=== PATIENT | female | born 1970 | race Two or more races ===

== ENCOUNTER 2024-07-06 12:47 | Inpatient (IN) | payer MEDICARE, MEDICAID ==
[2024-07-06] MEDS ORDERED: MAG HYDROX/AL HYDROX/SIMETH 355 ML BOTTLE PO PRN (13:04)
[2024-07-06] MEDS ORDERED: ACETAMINOPHEN TAB 325 MG TAB PO PRN (13:04)
[2024-07-06] MEDS ORDERED: MAGNESIUM HYDROXIDE 2,400 MG/30 ML CUP PO PRN (13:04)
[2024-07-06] MEDS ORDERED: IBUPROFEN 600 MG TAB PO PRN (13:04)
[2024-07-06] MEDS ORDERED: OLANZapine ODT 5 MG TAB PO PRN (13:50)
[2024-07-06] MEDS ORDERED: LORazepam 1 MG TAB PO PRN (13:50)
[2024-07-06 15:53] LABS: Glucose,Whole Blood 103 mg/dL (70-110)
[2024-07-06] MEDS: NICOTINE 21MG/24HR PATCH TRANSDERM SCH (15:58)
[2024-07-06] MEDS: OLANZapine ODT 10 MG TAB PO SCH (15:58)
[2024-07-06 17:44] LABS: Glucose,Whole Blood 141 mg/dL (70-110)
[2024-07-06 20:09] LABS: Glucose,Whole Blood 115 mg/dL (70-110)
[2024-07-06] MEDS: risperiDONE 1 MG TAB PO SCH (21:18)
[2024-07-06] MEDS: DIVALPROEX 250 MG TABLET.DR PO SCH (21:18)
[2024-07-06] MEDS: DIVALPROEX 500 MG TABLET.DR PO SCH (21:18)
[2024-07-06] MEDS: traZODone HCL 100 MG TAB PO SCH (21:19)
[2024-07-06] MEDS: PROPRANOLOL 10 MG TAB PO SCH (21:20)
[2024-07-07 08:03] LABS: Glucose,Whole Blood 94 mg/dL (70-110)
--- NOTE | 2024-07-07 08:09 | P.HP ---
Psychiatric H&P - . H&P Date: 07/07/24 History & Physical: Allergies Allergy/AdvReac Type Severity Reaction Status Date / Time sulfamethoxazole Allergy Rash/Hives Verified 07/06/24 13:03 [From Bactrim] trimethoprim [From Bactrim] Allergy Rash/Hives Verified 07/06/24 13:03 venom-wasp Allergy Anaphylaxis Verified 07/06/24 13:03 Vital Signs Temp 98.4 F 07/06/24 21:00 Pulse 94 07/06/24 21:00 Resp 14 07/06/24 21:00 BP 146/81 07/06/24 21:00 Pulse Ox 93 L 07/06/24 21:00 FiO2 Intake & Output 07/06/24 07/07/24 07/07/24 18:59 06:59 18:59 Weight 84 kg Laboratory Last Values POC Glucose (mg/dL) 115 mg/dL (70-110) H 07/06/24 20:07 POC Glu Toaster Operator ID Echo Melo 07/06/24 20:07 07/07/24 07:55 IDENTIFYING DATA: Patient is a 53-year-old female currently unemployed living with her HPI: Patient presented to the hospital under a CERT due auditory hallucinations and suicidal thoughts. The patient has a long history of schizophrenia that consist with auditory hallucinations. She notes that when she does have auditory hallucinations generally they are inside her head, male, unfamiliar and positive. She notes the recent incident was caused by forgetfulness of taking her medication. She notes that she started hearing the voices and instantly became angry. She notes that she knocked the record albums off the stereo and kicked a chair. After which she punched the door and requested that her called 911. When the police arrived she had noted that she was having thoughts of "wishing she was ". She notes that she is dealing with mild depression as well as anxiety. She notes that she has a chronic history of fractured sleep however, on the day of the incident she was unable to go to sleep at her usual bedtime at 9 PM and stayed up to 12. She notes that her energy and appetite are normal. She notes that her concentration is "okay". She denies any feelings of helplessness, hopelessness or worthlessness. She notes some crying and feelings of guilt.. Patient denies any suicidal or homicidal ideations intent or plan currently. At this time patient denies any auditory or visual hallucinations. Review of psychiatric systems was negative for bipolar disorder, OCD and PTSD. PAST PSYCHIATRIC HISTORY: Patient has a history of schizophrenia. Currently on trazodone 200 mg, Risperdal 3 mg twice daily, Zyprexa 10 mg 3 times daily, Depak ote 750 mg twice daily. The patient has been on other medications but cannot recall. Patient has over 12 hospitalizations in the past most recently 11 years ago. The patient has 2 prior suicide attempts. Patient follows up with mental health outpatient. The patient notes no abuse in childhood. S PMH: as per ER note ALLERGIES: as per EMR CHEMICAL DEPENDENCY HISTORY: as per HPI FAMILY PSYCHIATRIC/SUBSTANCE USE HISTORY: Denies SOCIAL HISTORY: Patient was born and raised in patient grew up in [place] and notes that her childhood was "wonderful". She notes that she dropped out in the 10th grade. She notes that she has been for the past 8 to 9 years. She denies any children. She is currently unemployed. She notes that she is mandaen. She denies any service. MENTAL STATUS EXAM: General Appearance: Patient appears to be older than her stated age is alert, directable, and attempts to cooperate. Patient appears to have good hygiene and grooming. Behavior: Patient is seated without any agitated behavior. Patient did have some problems at times with possible thought blocking. Speech: Patient's speech is fluent and nonpressured. Mood/Affect: Patient reports their mood is anxious, affect is congruent and constricted. Suicidality/Homicidality: Patient denies having any homicidal ideation intent or plan. Denies any suicidal ideations intent or plan Perceptions: Patient denies any visual hallucinations and denies any auditory hallucinations Though content/process: There is no evidence of any delusional thought content and thought process is linear and goal-directed. Memory and concentration: AOX3, grossly intact for the purposes of this session. Can spell "WORLD" backwards Judgment and insight: Fair STRENGTHS/WEAKNESSES: strength is that patient is resilient. Weakness is that patient has fair judgment and impulse control. INTELLECT: Average Diagnosis: Schizophrenia Assessment: 53-year-old female presenting due to having auditory hallucinations and brief suicidal thoughts due to noncompliance with medications. Appears that the noncompliance with medication is concurrent with forgetfulness. She did voice that she was having thoughts of with no plan or intent when having the auditory hallucinations. She does have some cognitive issues that appear to be driven possibly by her being noncompliant with medications. At this time patient warrants observation to ensure safety and that her psychosis is under control. An attempt was made to contact her significant other Doron [phone] however unsuccessful. PLAN: -Patient is admitted under voluntary status to MHU for stabilization of psychiatric symptoms and safety. Patient has signed [adult voluntary form and] [medication consent] and is placed in patient's chart. -Medications : Restart Trazodone 200 mg take 1 tablet by mouth at bedtime for insomnia Risperidone 3 mg take 1 tablet by mouth twice daily for schizophrenia Zyprexa Zydis 10 mg take 1 tablet sublingually 3 times daily for schizophrenia Depakote 250 mg take 1 tablet by mouth twice daily for mood stabilization Depakote 500 mg take 1 tablet by mouth twice daily for mood stabilization -Ativan and Zyprexa PRN for agitation/aggression -Patient was informed of the risks, benefits and side effects of the medication and patient verbally consented to taking the medications. Patient signed med consent form and was placed in chart. -Internal Medicine consult to perform medical evaluation and physical. -NRT -nicotine patch -SW on board for discharge planning. Encourage patient to participate in groups to work on coping skills.
[2024-07-07] MEDS: MULTIVITAMINS, THERA 1 EACH TAB PO SCH (08:58)
[2024-07-07] MEDS: POTASSIUM CHLORIDE ER 10 MEQ TAB.ER.PRT PO SCH (08:58)
[2024-07-07] MEDS: FUROSEMIDE 40 MG TAB PO SCH (08:58)
[2024-07-07] MEDS: DOCUSATE 100 MG CAP PO SCH (08:59)
[2024-07-07] MEDS: LINAGLIPTIN 5 MG TABLET PO SCH (08:59)
[2024-07-07] MEDS: ATORVASTATIN 20 MG TAB PO SCH (08:59)
[2024-07-07] MEDS: EZETIMIBE 10 MG TAB PO SCH (08:59)
[2024-07-07 13:01] LABS: Glucose,Whole Blood 119 mg/dL (70-110)
[2024-07-07 14:23] LABS: Chol/HDL Ratio 1.98 Ratio; LDL Cholesterol,Calculated 45.7 mg/dL (0.0-131.0); VLDL Calculation 19.06 mg/dL (5.00-40.00)
[2024-07-07 17:46] LABS: Glucose,Whole Blood 135 mg/dL (70-110)
--- NOTE | 2024-07-08 02:24 | P.MDCNMH ---
History of Present Illness H&P Date: 07/08/24 53 year old female with DM presented for mental health evaluation due to auditory hallucination and suicidal ideation she reports coughing productive of clear sputum for couple days with sore throat denies runny nose , fever, chills , body aches , chest pain or trouble breathing Patient admits to tobacco smoking denies alcohol abuse review of systems Pertinent positives as noted in HPI. All other systems were reviewed and are negative on exam Constitutional: No acute distress, conversant, pleasant Eyes: Anicteric sclerae, moist conjunctiva, Pupils equal round reactive to light Neck: Supple, no masses, or JVD No carotid bruits No thyromegaly Lungs: Clear to auscultation Clear to percussion Normal respiratory effort, no accessory muscle use Cardiovascular: Heart regular in rate and rhythm, No murmurs, gallops, or rubs No peripheral edema Abdominal: Soft Nontender, no guarding, rebound or rigidity Abdomen moving with respiration Extremities: No digital cyanosis No clubbing Pedal pulses intact and symmetrical Radial pulses intact and symmetrical No calf tenderness Psychiatric: Alert and oriented to person, place and time Neuro Muscles Strength 5/5 in all 4 extremities Sensation to light touch grossly present throughout Cranial nerves II-XII grossly intact Assessment and plan acute psychosis managmeent per psych acute bronchitis RN reported respiratory viral panel and xray done at different facility both unremarkable symptomatic control with tessalon pearls as needed tid no blood work available for review except for lipid panel , LDL 45 HDL 66 , both are well controlled and unremarkable Thank you for this consultation Past Medical History Past Medical History: Diabetes Mellitus, Hypertension, Skin Disorder Additional Past Medical History / Comment(s): eczema severe History of Any Multi-Drug Resistant Organisms: None Reported Past Surgical History: No Surgical Hx Reported Past Anesthesia/Blood Transfusion Reactions: No Reported Reaction Past Psychological History: Schizophrenia Smoking Status: Current every day smoker Past Alcohol Use History: None Reported Past Drug Use History: None Reported Medications and Allergies Allergies Allergy/AdvReac Type Severity Reaction Status Date / Time sulfamethoxazole Allergy Rash/Hives Verified 07/06/24 13:03 [From Bactrim] trimethoprim [From Bactrim] Allergy Rash/Hives Verified 07/06/24 13:03 venom-wasp Allergy Anaphylaxis Verified 07/06/24 13:03 Physical Exam Vitals: Vital Signs Temp Pulse Resp BP Pulse Ox 07/07/24 21:00 98.3 F 87 17 126/73 96 07/07/24 09:00 97.8 F 105 H 110/64 95 Cranial Nerve Examination - Cranial Nerves Cranial Nerve II- Optic: Intact Cranial Nerve III- Oculomotor: Intact Cranial Nerve IV- Trochlear: Intact Cranial Nerve V- Trigeminal: Intact Cranial Nerve - Abducens: Intact Cranial Nerve VII- Facial: Intact Cranial Nerve VIII- Auditory: Intact Cranial Nerve IX- Glossopharyngeal: Intact Cranial Nerve X- Vagus: Intact Cranial Nerve XI- Accessory: Intact Cranial Nerve XII- Hypoglossal: Intact Results Labs: Abnormal Lab Results - Last 24 Hours (Table) 07/07/24 07/07/24 07/07/24 Range/Units 08:18 12:57 17:44 POC Glucose (mg/dL) 119 H 135 H (70-110) mg/dL HDL Cholesterol 66.20 H (40.00-60.00) mg/dL
[2024-07-08] MEDS ORDERED: DEXTROSE 50% SYRINGE 50 ML IVP PRN ×2 (02:26)
[2024-07-08 07:47] LABS: Glucose,Whole Blood 106 mg/dL (70-110)
[2024-07-08] MEDS: INSULIN LISPRO (HumaLOG) 100 UNIT/ML 10 mL VL SQ SCH (07:55)
[2024-07-08 09:11] VITALS: BP 130/67; PULSE 78; RESP 18; TEMP 97.2
--- NOTE | 2024-07-08 10:28 | P.DS ---
Providers Date of admission: 07/06/24 15:49 Admission HPI: Admission note was completed by Dr. Munoz "Patient presented to the hospital under a CERT due auditory hallucinations and suicidal thoughts. The patient has a long history of schizophrenia that consist with auditory hallucinations. She notes that when she does have auditory hallucinations generally they are inside her head, male, unfamiliar and positive. She notes the recent incident was caused by forgetfulness of taking her medication. She notes that she started hearing the voices and instantly became angry. She notes that she knocked the record albums off the stereo and kicked a chair. After which she punched the door and requested that her called 911. When the police arrived she had noted that she was having thoughts of "wishing she was ". She notes that she is dealing with mild depression as well as anxiety. She notes that she has a chronic history of fractured sleep however, on the day of the incident she was unable to go to sleep at her usual bedtime at 9 PM and stayed up to 12. She notes that her energy and appetite are normal. She notes that her concentration is "okay". She denies any feelings of helplessness, hopelessness or worthlessness. She notes some crying and feelings of guilt.. Patient denies any suicidal or homicidal ideations intent or plan currently. At this time patient denies any auditory or visual hallucinations. Review of psychiatric systems was negative for bipolar disorder, OCD and PTSD." Hospital course: Upon admission to the unit patient was directable and agreeable to commence treatment and signed adult voluntary form. Upon admission the patient was extremely cooperative and went back on her medications including her Depakote 750 mg twice daily, Zyprexa 10 mg 3 times daily, Risperdal 3 mg twice daily and Trazodone 200 mg at night. Patient had no adverse side effects to the medication. Throughout her stay she presented calm and cooperative. There was some mild problems with concentration but nothing significant. She never expressed any suicidal or homicidal ideations. She denied any psychosis during her visit. Patient got along well with other patients on the unit and followed unit protocol. Patient was compliant with the medications and denied any side effects throughout hospital course. Patient spoke of her stressors and engaged in therapy both group and individual. Patient was also seen by medical team for history and physical exam. Throughout the course of the hospitalization patient gradually improved with regards to mood, anxiety, sleep and returned back to their baseline level of functioning became more future oriented with improved insight and judgment. On the day of discharge patient denied any suicidal or homicidal ideations intent or plan denied any auditory or visual hallucinations. Patient endorsed wanting to live for their health and family. The patient de nied any access to guns or weapons. Patient denied any paranoia and did not endorse any delusions. Patient does not have a significant history of substance abuse. Patient ended up agreeing to inpatient subtance rehab. Patient was also counseled on the medications and need for regular compliance and was encouraged to follow-up with their outpatient appointment for mental health and also for primary care. Prior to discharge a family meeting will be arranged by social sciences research scientist to answer any questions and ensure safety upon discharge incuding making sure that guns/weapons are either removed from the home or locked away. Day of discharge patient denies any auditory visual hallucinations. Patient denied any suicidal or homicidal ideations. She notes that she is not depressed or anxious. Her voiced that all the medications are in the house and he is excited to have her back. Mental status exam: General Appearance: Patient appears to be her stated age is alert, pleasant, and cooperative. Patient is in no acute distress and has improved hygiene and grooming Behavior: Patient is calmly seated without any agitated behavior. Speech: Patient's speech is fluent and nonpressured. Mood/Affect: Patient reports their mood is "better good", affect is congruent and euthymic. Suicidality/Homicidality: Patient denies having any suicidal or homicidal ideation intent or plan. Perceptions: Patient denies any auditory or visual hallucinations. Though content/process: There is no evidence of any delusional thought content and thought process is linear and goal-directed. More future oriented Memory and concentration: AOX3, grossly intact for the purposes of this session. Can spell "WORLD" backwards correctly. Judgment and insight: Judgment was fair as well as insight Impression: Schizophrenia under control with medications Plan: -Continue with discharge today as patient has improved and stabilized psychiatrically and is not currently an imminent threat to themself and/or others. Patient will remain at chronically elevated risk for harm to self and/or others due to their impulsivity. -Continue medicationsTrazodone 200 mg take 1 tablet by mouth at bedtime for insomnia Risperidone 3 mg take 1 tablet by mouth twice daily for schizophrenia Zyprexa Zydis 10 mg take 1 tablet sublingually 3 times daily for schizophrenia Depakote 250 mg take 1 tablet by mouth twice daily for mood stabilization Depakote 500 mg take 1 tablet by mouth twice daily for mood stabilization: -Patient was counseled on the need for medication compliance and appropriate follow-up at mental health and also primary care for medical issues. Patient verbalized understanding and agreed. -Social work to help coordinate patients discharge today arrange for and conduct family meeting to ensure safety upon discharge and answer any questions/concerns. also to ensure safe home environment that guns/weapons are either removed from the home or locked away. Social work also to arrange for patients follow up appointments with [facility] for psychiatric care along with follow up with primary care provider. -Patient counseled on abstaining from recreational drugs and marijuana and alcohol. Was informed/educated on the adverse effects on their physical and mental health. Patient verbally agreed and understood. -Patient was instructed to return to the hospital or seek immediate medical care if their psychiatric or medical symptoms do worsen or reoccur. -Patient is admitted under voluntary status to MHU for stabilization of psychiatric symptoms and safety. Patient has signed adult voluntary form and medication consent and is placed in patient's chart. Expected date of discharge: 07/08/24 Attending physician: Chandler Gutierrez MD Consults: 07/06/24 13:04 Consult Physician Routine Consulting Provider: [facility] Consult Reason/Comments: H & P w/medical mgmt Do you want consulting provider notified?: Yes Primary care physician: Stated None Patient Condition at Discharge: Good Plan - Discharge Summary Discharge Rx Participant: No Follow up Appointment(s)/Referral(s): [facility] Leach [Other] - 07/11/24 1:00 pm (Jacqueline Hsu 07/11 @ 13:00) [facility] [Other] - 1 Week Patient Instructions/Handouts: Schizophrenia (DC) Activity/Diet/Wound Care/Special Instructions: Avoid the use of street drugs and alcohol. Take all medications as prescribed. When you are in need of refills on your medications, please contact your medical provider and/or outpatient psychiatrist/provider to have this done. Please go to your scheduled outpatient appointment for aftercare treatment. If symptoms return or become worse, call the crisis line at and/or go to the nearest emergency room for evaluation. National Suicide Hotline [address] confidentiality statement: "The information contained in this communication, including attachments, is confidential, may be privileged, and is intended only for the use of the named recipient(s). Unauthorized use, disclosure, forwarding or copying is strictly prohibited and may be unlawful. If you have received this communication in error, please notify me IMMEDIATELY at the phone number or pager listed above. Discharge Disposition: HOME SELF-CARE
== END 2024-07-08 12:22 | disposition home or self-care (01) | DRG 885 ==
LOC: 3MHU 15:49
PROVIDERS: ADMIT Psychiatry & Neurology Psychiatry; ATTEND Psychiatry & Neurology Psychiatry
DX: F20.9 Schizophrenia, unspecified (principal); E11.9 Type 2 diabetes mellitus without complications; R45.851 Suicidal ideations; F32.A Depression, unspecified; I10 Essential (primary) hypertension; F17.210 Nicotine dependence, cigarettes, uncomplicated; F41.9 Anxiety disorder, unspecified; G47.00 Insomnia, unspecified; L30.9 Dermatitis, unspecified; J20.9 Acute bronchitis, unspecified; Z56.0 Unemployment, unspecified; Z79.899 Other long term (current) drug therapy; Z91.148 Patient's other noncompliance with medication regimen for other reason; Z91.51 Personal history of suicidal behavior; W22.09XA Striking against other stationary object, initial encounter; Y92.099 Unspecified place in other non-institutional residence as the place of occurrence of the external cause; Z88.2 Allergy status to sulfonamides; Z88.1 Allergy status to other antibiotic agents; Z91.038 Other insect allergy status; Z71.6 Tobacco abuse counseling
CPT/HCPCS: 80061; 83036